=== PATIENT | female | born 1965 | race Caucasian/White ===

== ENCOUNTER 2019-05-05 22:18 | Outpatient (CLI) | payer OTHER, SELFPAY ==
[2019-05-05 22:20] VITALS: BP 109/66; PULSE 80; RESP 16; TEMP 36.8; O2SAT 98
[2019-05-05 22:26] VITALS: BMI 31.3
[2019-05-05 22:34] VITALS: RESP 16
== END 2019-05-05 22:42 | disposition home or self-care (01) ==
LOC: INF 22:21
PROVIDERS: PCP Emergency Medicine; Visit Provider Emergency Medicine
DX: N20.0 Calculus of kidney (principal)

== ENCOUNTER → 2020-02-19 20:26 | Outpatient (CLI) | payer OTHER, SELFPAY ==
[2020-02-19 21:04] LABS: Coronavirus 19 IgG Antibody Negative (Negative); Coronavirus 19 IgM Antibody Negative (Negative)
== END ==
PROVIDERS: PCP Emergency Medicine; Visit Provider Emergency Medicine
DX: Z03.818 Encounter for observation for suspected exposure to other biological agents ruled out (principal)
CPT/HCPCS: 86328

== ENCOUNTER → 2020-11-07 20:14 | Outpatient (CLI) | payer OTHER, SELFPAY ==
--- NOTE | 2020-11-07 | XR_ITS ---
PROCEDURE: XR ELBOW LT MIN 3V CLINICAL INDICATION: Pain following injury COMPARISON: No exams were available for comparison FINDINGS: There is faint calcification along the lateral epicondyle and may be due to an old ligamentous injury or ununited ossification center. The joint spaces are well-preserved. No significant degenerative/arthritic changes. No erosive changes evident. Other findings:None. IMPRESSION: No acute findings. Dictated by: Enrique Matute MD 11/08/2020 06:47 Enrique Matute MD in [facility] 11/08/2020 06:47
== END ==
PROVIDERS: PCP Emergency Medicine; Visit Provider Emergency Medicine
DX: M25.522 Pain in left elbow (principal); Y93.23 Activity, snow (alpine) (downhill) skiing, snowboarding, sledding, tobogganing and snow tubing
CPT/HCPCS: 73080

== ENCOUNTER → 2021-05-06 09:49 | Outpatient (CLI) | payer OTHER, SELFPAY | PROVIDERS: PCP Emergency Medicine; Visit Provider Emergency Medicine | DX: Z20.822 Contact with and (suspected) exposure to COVID-19 (principal) | CPT/HCPCS: U0003 ==

== ENCOUNTER → 2021-10-10 05:16 | Outpatient (CLI) | payer OTHER, SELFPAY | PROVIDERS: PCP Emergency Medicine; Visit Provider Emergency Medicine | DX: U07.1 COVID-19 (principal) | CPT/HCPCS: C9803; U0003; U0005 ==

== ENCOUNTER 2022-07-29 18:05 | Emergency (ER) | payer OTHER, SELFPAY ==
[2022-07-29 18:05] VITALS: BP 143/70; PULSE 80; RESP 18; TEMP 36.4; O2SAT 97; BMI 29.2
[2022-07-29 18:10] VITALS: BP 143/70; PULSE 85; RESP 18; O2SAT 99
[2022-07-29 18:15] VITALS: PULSE 82; O2SAT 99
--- NOTE | 2022-07-29 18:18 | PC.NURSE ---
ED MD AT BEDSIDE FOR EVALUATION
--- NOTE | 2022-07-29 18:20 | XR_ITS ---
PROCEDURE INFORMATION: Exam: XR Chest Exam date and time: 07/29/2022 6:35 PM Age: 56 years old Clinical indication: Shortness of breath; Prior surgery; Surgery date: 6+ months; Surgery type: HX triple bypass w stent placement; Patient HX: SOA since covid; Additional info: Wheezing TECHNIQUE: Imaging protocol: Radiologic exam of the chest. Views: 1 view. COMPARISON: CT ABDOMEN PELVIS WO CON 05/08/2019 8:50 PM FINDINGS: Lungs: No acute airspace consolidation. No appreciable pulmonary edema. Pleural spaces: No pleural effusion. No pneumothorax. Heart/Mediastinum: Post-operative changes of prior CABG. No cardiomegaly. Bones/joints: No evidence of acute osseous abnormality. IMPRESSION: No evidence of acute cardiopulmonary disease.
[2022-07-29 18:40] VITALS: PULSE 85
--- NOTE | 2022-07-29 18:43 | PC.NURSE ---
RESPIRATORY AT BEDSIDE
--- NOTE | 2022-07-29 20:16 | PC.NURSE ---
report given to [email or web address]
[2022-07-29 20:38] VITALS: BP 141/74; PULSE 82; RESP 18; TEMP 36.4; O2SAT 97
--- NOTE | 2022-07-29 21:43 | HMH.EDGENADL ---
Discharge Plan Disposition Patient Disposition: Home, Self-Care Condition: Good Prescriptions Prescriptions: No Action aspirin [Adult Low Dose Aspirin] 81 mg tablet,delayed release (DR/EC) 81 mg PO DAILY cholecalciferol (vitamin D3) 2,000 unit capsule 2,000 unit PO DAILY coenzyme Q10 [Co Q-10] 400 mg capsule 400 mg PO DAILY famotidine [Pepcid] 20 mg tablet 20 mg PO DAILY Qty: 90 1RF pregabalin [Lyrica] 75 mg capsule 75 mg PO BID Qty: 60 5RF metoprolol succinate 50 mg tablet extended release 24 hr See Rx Instructions .ROUTE .COMPLEX Qty: 30 8RF Dose Instruction: TAKE 1 TABLET BY MOUTH EVERY DAY Rx Instructions: TAKE 1 TABLET BY MOUTH EVERY DAY atorvastatin 40 mg tablet See Rx Instructions .ROUTE .COMPLEX Qty: 30 3RF Dose Instruction: TAKE 1 TABLET BY MOUTH EVERYDAY AT BEDTIME Rx Instructions: TAKE 1 TABLET BY MOUTH EVERYDAY AT BEDTIME lisinopril 10 mg tablet See Rx Instructions .ROUTE .COMPLEX Qty: 30 2RF Dose Instruction: TAKE 1 TABLET BY MOUTH EVERY DAY Rx Instructions: TAKE 1 TABLET BY MOUTH EVERY DAY tramadol 50 mg tablet 50 mg PO TID Qty: 90 2RF Referrals Follow up/Referrals: Stephen Cruz MD [Primary Care Provider] - See instructions Clinical Impressions Clinical Impression: COVID Instructions Patient Instructions: Coronavirus Disease 2019 Discharge ED Provider: Otto Acosta General Adult HPI General Chief complaint: Shortness of Breath/Dyspnea Stated complaint: SOA, pos Covid 07/18 Time Seen by Provider: 07/29/22 18:10 Mode of Arrival: Ambulatory Source of Information: Patient Limitations: No Limitations Description of Symptoms (Recalled from ER Triage Doc. by RN): Pt reports increased SOA that began today upon waking up today. Pt tested positive for covid on 07/18/22. Pt reports symptoms had improved and then 2 days ago began having productive cough again. Pt states no recent fevers. History of Present Illness HPI narrative: Patient is a 56-year-old female with a past medical history of hyperlipidemia, hypertension, CAD who presents with concern for worsening shortness of breath. She tested positive for COVID on 07 18. She says that her symptoms have improved but have started to get worse. No recent fevers. Denies any chest pain. She says that she feels like she is a little bit of wheezing. No nausea, no vomiting. Related Data Home Medications Medication Instructions Recorded Confirmed aspirin 81 mg tablet,delayed 81 mg PO DAILY 11/16/17 05/23/22 release (Adult Low Dose Aspirin) cholecalciferol (vitamin D3) 50 2,000 unit PO DAILY 11/16/17 05/23/22 mcg (2,000 unit) capsule coenzyme Q10 400 mg capsule (Co 400 mg PO DAILY 11/16/17 05/23/22 Q-10) Previous Rx's Medication Instructions Recorded famotidine 20 mg tablet (Pepcid) 20 mg PO DAILY #90 tabs 10/03/19 pregabalin 75 mg capsule (Lyrica) 75 mg PO BID #60 caps 11/11/21 metoprolol succinate 50 mg See Rx Instructions .Route 11/29/21 tablet,extended release 24 hr .COMPLEX #30 tabs atorvastatin 40 mg tablet See Rx Instructions .Route 04/05/22 .COMPLEX #30 tabs lisinopril 10 mg tablet See Rx Instructions .Route 06/07/22 .COMPLEX #30 tabs tramadol 50 mg tablet 50 mg PO TID #90 tabs 07/07/22 Allergies Allergy/AdvReac Type Severity Reaction Status Date / Time oxcarbazepine Allergy Mild Verified 05/23/22 08:27 [From TRILEPTAL] promethazine [PROMETHAZINE] Allergy Mild Verified 05/23/22 08:27 TEGADERM Allergy Mild Uncoded 05/23/22 08:27 [facility] Social History Smoking Status: Current every day smoker tobacco type: cigarettes packs per day: 1 alcohol intake: never substance use type: denies use current occupational status: employed Travel in the last 8 weeks: None household members: family housing: house ROS Obtained: Yes All systems revi
== END 2022-07-29 20:40 | disposition home or self-care (01) ==
PROVIDERS: Emergency Provider Student in an Organized Health Care Education/Training Program; PCP Emergency Medicine
DX: U07.1 COVID-19 (principal); Z79.82 Long term (current) use of aspirin; Z79.899 Other long term (current) drug therapy; Z88.8 Allergy status to other drugs, medicaments and biological substances; Z72.0 Tobacco use; E78.5 Hyperlipidemia, unspecified; I10 Essential (primary) hypertension; I25.10 Atherosclerotic heart disease of native coronary artery without angina pectoris
CPT/HCPCS: 71045; 94640; 96365; 96375; 99284

== ENCOUNTER 2022-08-04 20:34 | Emergency (ER) | payer OTHER, SELFPAY ==
[2022-08-04] VITALS (7 sets, daily range): BP systolic 117–154; BP diastolic 62–82; PULSE 61–73; RESP 18; TEMP 36.4; O2SAT 96–99; BMI 23.6
--- NOTE | 2022-08-04 21:11 | XR_ITS ---
PROCEDURE INFORMATION: Exam: XR Chest Exam date and time: 08/04/2022 10:01 PM Age: 56 years old Clinical indication: Shortness of breath; Prior surgery; Surgery date: 6+ months; Surgery type: Open heart; Patient HX: Recent covid SOB; Additional info: Short of air TECHNIQUE: Imaging protocol: Radiologic exam of the chest. Views: 2 views. COMPARISON: CR XR CHEST PORTABLE 07/29/2022 6:35 PM FINDINGS: Lungs: Normal pulmonary expansion. Pulmonary vasculature grossly normal. New mild left perihilar alveolar opacity, pneumonia versus atelectasis. Pleural spaces: Blunted left lateral costophrenic angle unchanged, pleural scarring versus small effusion. No pneumothorax. Heart/Mediastinum: Heart size normal. Prior median sternotomy. No tracheal/mediastinal shift. Bones/joints: No acute osseous abnormalities are identified. Moderate thoracic spondylosis. Intraperitoneal space: Right upper quadrant surgical clips suggest prior cholecystectomy. IMPRESSION: 1. New mild left perihilar airspace disease, atelectasis versus pneumonia. 2. Unchanged blunting of the left lateral costophrenic angle, small effusion versus pleural scarring.
--- NOTE | 2022-08-04 21:15 | CT_ITS ---
PROCEDURE INFORMATION: Exam: CTA Chest With Contrast Exam date and time: 08/04/2022 10:05 PM Age: 56 years old Clinical indication: Shortness of breath; Prior surgery; Surgery date: 6+ months; Surgery type: Open heart surgery; Patient HX: Recent covid SOB; Additional info: Short of air TECHNIQUE: Imaging protocol: Computed tomographic angiography of the chest with contrast. 3D rendering (Not supervised by radiologist): MIP and/or 3D reconstructed images were created by the technologist. Radiation optimization: All CT scans at this facility use at least one of these dose optimization techniques: automated exposure control; mA and/or kV adjustment per patient size (includes targeted exams where dose is matched to clinical indication); or iterative reconstruction. Contrast material: ISOVUE 370; Contrast volume: 70 ml; Contrast route: INTRAVENOUS (IV); COMPARISON: CR XR CHEST 2V 08/04/2022 10:01 PM FINDINGS: Pulmonary arteries: The pulmonary arteries enhance appropriately with no evidence of pulmonary embolism. Aorta: Mild aortic ectasia/tortuosity. No aortic aneurysm or dissection. No mediastinal hematoma. Thyroid: The visualized thyroid gland demonstrates no gross abnormality. Lungs: Mild bilateral bronchial wall thickening consistent with bronchitis or bronchial edema. No bronchiectasis. There are few short segment subsegmental bronchial occlusions in the basilar lower lobe segments bilaterally probably related to mucous plugging/secretions. No gross pulmonary infiltrates or edema pattern. Patchy atelectasis in the lingula and left lung base. 3.5 mm juxtapleural nodule in the lateral right pulmonary apex on series 5, image 21. 7 mm mixed attenuation nodule in the medial left apex on image 22. 5 mm ground-glass nodule in the posterolateral right lower lobe on image 58. Recommend CT at 3-6 months. Subsequent management based on the most suspicious nodule(s). (Ania et al., Fleischner Society, 2017). Granulomatous calcifications in the spleen without acute splenic abnormality. Pleural spaces: No pleural effusion. No pneumothorax. Heart: Heart size normal. Moderate-severe coronary artery calcification with probable prior coronary stent placements. 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 No pericardial effusion. Mediastinal space: The esophagus is largely contracted but demonstrates no gross abnormality. Lymph nodes: No supraclavicular or axillary adenopathy. No mediastinal or hilar adenopathy. Gallbladder and bile ducts: Prior cholecystectomy with no significant dilatation of the common bile duct. Bones/joints: No acute osseous abnormalities are identified. Bilateral C7 cervical ribs noted. Soft tissues: The soft tissues of the chest wall demonstrate no acute abnormality. IMPRESSION: 1. No evidence of pulmonary embolism or aortic dissection. 2. Mild bronchial wall thickening suggesting changes of bronchitis or bronchial edema. There are few short subsegmental bronchial occlusions in the lung bases likely related to mucous plugging/secretions. No gross pulmonary infiltrates. 3. There are few subsolid pulmonary nodules bilaterally, largest 7 mm in the left apex. Please see follow-up recommendations above. 4. Additional nonemergent findings detailed above.
--- NOTE | 2022-08-04 21:25 | HMH.EDSOB ---
Discharge Plan Disposition Patient Disposition: Home, Self-Care Prescriptions Prescriptions: New prednisone [prednisone] 20 mg tablet 20 mg PO BID Qty: 10 0RF levofloxacin 500 mg tablet 500 mg PO DAILY Qty: 7 0RF No Action aspirin [Adult Low Dose Aspirin] 81 mg tablet,delayed release (DR/EC) 81 mg PO DAILY cholecalciferol (vitamin D3) 2,000 unit capsule 2,000 unit PO DAILY coenzyme Q10 [Co Q-10] 400 mg capsule 400 mg PO DAILY famotidine [Pepcid] 20 mg tablet 20 mg PO DAILY Qty: 90 1RF pregabalin [Lyrica] 75 mg capsule 75 mg PO BID Qty: 60 5RF metoprolol succinate 50 mg tablet extended release 24 hr See Rx Instructions .ROUTE .COMPLEX Qty: 30 8RF Dose Instruction: TAKE 1 TABLET BY MOUTH EVERY DAY Rx Instructions: TAKE 1 TABLET BY MOUTH EVERY DAY lisinopril 10 mg tablet See Rx Instructions .ROUTE .COMPLEX Qty: 30 2RF Dose Instruction: TAKE 1 TABLET BY MOUTH EVERY DAY Rx Instructions: TAKE 1 TABLET BY MOUTH EVERY DAY tramadol 50 mg tablet 50 mg PO TID Qty: 90 2RF atorvastatin 40 mg tablet See Rx Instructions .ROUTE .COMPLEX Qty: 30 3RF Dose Instruction: TAKE 1 TABLET BY MOUTH EVERYDAY AT BEDTIME Rx Instructions: TAKE 1 TABLET BY MOUTH EVERYDAY AT BEDTIME Referrals Follow up/Referrals: Stephen Cruz MD [Primary Care Provider] - See instructions Clinical Impressions Clinical Impression: Acute exacerbation of chronic obstructive airways disease Instructions Patient Instructions: DI for Chronic Obstructive Pulmonary Disease Discharge ED Provider: Stephen Cruz Resp/SOB HPI General Chief Complaint: Shortness of Breath/Dyspnea Stated Complaint: SOA Time Seen by Provider: 08/04/22 21:25 Mode of Arrival: Ambulatory Source of Information: Patient, Spouse and Medical Record Limitations: No Limitations Description of Symptoms (Recalled from ER Triage Doc. by RN): pt states that she has had shortness of air since sunday. the pt reports she has had chest pressure since 2pm today pt is coming off her second round of covid and has been unable to over come the short of air. the pt states her cough has gotten better History of Present Illness progressive sob with prod cough over the last few days - was seen in the ed -more sob with ambulation - hx of cad and covid-19 and tob use Complaint: shortness of breath and cough Onset (ago): day(s) Context: recent illness Severity: moderate Consistency/Duration: constant Exacerbating factors: exertion and coughing Known history of: COPD Associated symptoms: denies other symptoms Related Data Home oxygen amount: none Home Medications Medication Instructions Recorded Confirmed aspirin 81 mg tablet,delayed 81 mg PO DAILY 11/16/17 05/23/22 release (Adult Low Dose Aspirin) cholecalciferol (vitamin D3) 50 2,000 unit PO DAILY 11/16/17 05/23/22 mcg (2,000 unit) capsule coenzyme Q10 400 mg capsule (Co 400 mg PO DAILY 11/16/17 05/23/22 Q-10) Previous Rx's Medication Instructions Recorded famotidine 20 mg tablet (Pepcid) 20 mg PO DAILY #90 tabs 10/03/19 pregabalin 75 mg capsule (Lyrica) 75 mg PO BID #60 caps 11/11/21 metoprolol succinate 50 mg See Rx Instructions .Route 11/29/21 tablet,extended release 24 hr .COMPLEX #30 tabs lisinopril 10 mg tablet See Rx Instructions .Route 06/07/22 .COMPLEX #30 tabs tramadol 50 mg tablet 50 mg PO TID #90 tabs 07/07/22 atorvastatin 40 mg tablet See Rx Instructions .Route 08/03/22 .COMPLEX #30 tabs levofloxacin 500 mg tablet 500 mg PO DAILY #7 tabs 08/05/22 prednisone 20 mg tablet 20 mg PO BID #10 tabs 08/05/22 Allergies Allergy/AdvReac Type Severity Reaction Status Date / Time oxcarbazepine Allergy Mild Verified 05/23/22 08:27 [From TRILEPTAL] promethazine [PROMETHAZINE] Allergy Mild Verified 05/23/22 08:27 TEGADERM Allergy Mild Uncoded 05/23/22 08:27 [facility] PFS Social History (Reviewed 05/23/22
[2022-08-04 21:26] LABS: Basophils # 0.2 K/mm3 (0-0.2); Basophils % 1.1 % (0.1-2.0); Eosinophils # 0.7 K/mm3 (0.0-0.4); Hematocrit 43.9 % (37.0-47.0); Hemoglobin 14.6 g/dL (12.2-16.2); Lymphocytes # 5.9 K/mm3 (0.7-4.5); Lymphocytes % 36.7 % (10-50); Mean Corpuscular HGB Conc 33.2 g/dL (31.8-35.4); Mean Corpuscular Hemoglobin 28.8 pg (27.0-31.2); Mean Corpuscular Volume 86.9 fl (81-99); Mean Platelet Volume 8.7 fl (7.4-10.4); Monocytes # 0.7 K/mm3 (0.1-1.0); Monocytes % 4.5 % (1.7-9.3); Neutrophils # 8.6 K/mm3 (1.8-7.8); Neutrophils % 53.7 % (37.0-80.0); Platelet Count 420 K/mm3 (142-424); Red Blood Count 5.05 M/mm3 (4.20-5.40); Red Cell Distribution Width 13.2 % (11.5-17.5); White Blood Count 16.1 K/mm3 (4.8-10.8)
[2022-08-04 21:27] LABS: Chloride 99 mmol/L (98-107)
[2022-08-04 21:28] LABS: Sodium 143 mmol/L (136-145)
[2022-08-04 21:29] LABS: MANUAL DIFFERENTIAL MANUAL DIFFERENTIAL (MANUAL DIFF)
[2022-08-04 21:30] LABS: Alanine Aminotransferase 24 U/L (12-78); Aspartate Amino Transferase 23 U/L (14-36); Blood Urea Nitrogen 6 mg/dl (7-17); Creatinine Clearance Estimated 97 mL/min (50-200); Estimated Glomerular Filt Rate 86 ml/min (>60); GFR (African American) 104 ML/MIN (>60)
[2022-08-04 21:31] LABS: Albumin Level 3.9 g/dl (3.5-5.0); Albumin/Globulin Ratio 1.1 (1.1-1.8); Alkaline Phosphatase 144 U/L (38-126); Anion Gap 11.8 mEq/L (5-15); Bilirubin,Total 0.2 mg/dl (0.2-1.3); Calcium 9.4 mg/dl (8.4-10.2); Carbon Dioxide 35 mmol/L (22.0-30.0); Globulin 3.4 g/dL (1.3-3.2); Glucose 123 mg/dl (74-100); Total Protein,Serum 7.3 g/dl (6.3-8.2)
[2022-08-04 21:50] LABS: Troponin I < 0.01 ng/ml (0.00-0.034)
[2022-08-04 21:51] LABS: Potassium 2.8 mmoL/L (3.5-5.1)
--- NOTE | 2022-08-04 21:52 | PC.NURSE ---
notified lina of critical potassium 2.8
[2022-08-04 22:16] LABS: Eosinophils % 2 % (0-3); Lymphocytes % 30 % (10-50); Neutrophils % 66 % (42-76); Platelet Estimate Normal; RBC Morphology Normal; Total Cells Counted 100
[2022-08-04 23:22] LABS: NT Pro Brain Natriuretic Pep. 242 pg/mL (0-125)
[2022-08-05] VITALS: BP 134/78; PULSE 70; O2SAT 98
[2022-08-05 00:30] VITALS: BP 122/65; PULSE 77; O2SAT 99
[2022-08-05 00:46] LABS: Troponin I < 0.01 ng/ml (0.00-0.034)
[2022-08-05 00:53] VITALS: BP 122/78; PULSE 77; RESP 18; TEMP 36.4; O2SAT 98
== END 2022-08-05 00:55 | disposition home or self-care (01) ==
PROVIDERS: Emergency Provider Emergency Medicine; PCP Emergency Medicine
DX: J44.1 Chronic obstructive pulmonary disease with (acute) exacerbation (principal); Z86.16 Personal history of COVID-19; Z72.0 Tobacco use; Z88.8 Allergy status to other drugs, medicaments and biological substances; I10 Essential (primary) hypertension; I25.10 Atherosclerotic heart disease of native coronary artery without angina pectoris; E78.5 Hyperlipidemia, unspecified
CPT/HCPCS: 71046; 71275; 80053; 83880; 84484; 85007; 85025; 94640; 96365; 96367; 96375; 99285; J0696; Q9967

== ENCOUNTER → 2022-10-07 19:41 | Outpatient (CLI) | payer OTHER, SELFPAY ==
--- NOTE | 2022-10-07 | XR_ITS ---
PROCEDURE INFORMATION: Exam: XR Right Finger(s) Exam date and time: 10/07/2022 7:49 PM Age: 56 years old Clinical indication: Pain; Finger(s); Right; Additional info: Finger pain right 3rd digit TECHNIQUE: Imaging protocol: Radiologic exam of the Right fingers. Views: Minimum 2 views. COMPARISON: No relevant prior studies available. FINDINGS: Bones/joints: No acute fracture or dislocation. There are no lytic skeletal lesions seen. No significant arthritic deformities. Soft tissues: Soft tissue swelling.No radiopaque foreign bodies. No pathologic soft tissue calcification. IMPRESSION: 1. Soft tissue swelling. 2. No acute bony injury.
== END ==
PROVIDERS: PCP Emergency Medicine; Visit Provider Emergency Medicine
DX: M79.644 Pain in right finger(s) (principal)
CPT/HCPCS: 73140

== ENCOUNTER 2023-02-23 06:50 | Day surgery (SDC) | payer OTHER, SELFPAY ==
[2023-02-23] VITALS (14 sets, daily range): BP systolic 86–119; BP diastolic 49–65; PULSE 54–60; RESP 14–18; TEMP 36.9; O2SAT 95–99; BMI 29.6
--- NOTE | 2023-02-23 07:08 | IR_ITS ---
APPROVED REPORT Patient Location: Outpatient PROCEDURES Left heart catheterization Left ventriculogram Selective coronary angiogram Selective engagement of left internal mammary artery to the LAD Selective engage in the saphenous vein graft to the right coronary Selective engagement saphenous vein graft to circumflex artery INDICATION Coronary artery disease, Accelerated angina pectoris, History of coronary bypass surgery Informed consent was obtained prior to the procedure. COMPLICATIONS None Estimated Blood Loss: Less than 10 mls TECHNIQUE One percent lidocaine used to anesthetize the right groin. The right femoral artery was accessed via the Seldinger technique and a 5 Spanish sheath was placed in the right femoral artery. A JL 4, JR4 catheter were used to perform left heart catheterization, left ventriculogram selective coronary angiography as well as selective engagement of the 2 vein grafts and the left internal mammary artery. At the end of the procedure the patient was transferred to the postop holding area in stable condition for sheath removal. ANGIOGRAPHIC RESULTS The left main artery Normal The left anterior descending artery Has stents in the ostial proximal segment which are widely patent free of in-stent restenosis. After a large septal furnace builder the LAD becomes occluded. It does give rise to a small to medium sized diagonal artery which has a proximal concentric 80 to 90% stenosis The circumflex artery Nondominant proximally occluded The right coronary artery Is a dominant vessel and has stents in the proximal mid and distal segment which are widely patent free of in-stent restenosis with excellent proximal distal transitioning. Distally there is a concentric 50 to 60% stenosis at a 2 mm segment in the posterior descending artery The RAMOS ventriculogram reveals Normal 60% The left ventricular end-diastolic pressure 10 mmHg MARCIAL to LAD patent Saphenous to circumflex artery ostially occluded Saphenous to right coronary ostially occluded IMPRESSION Coronary disease as described above Normal ejection fraction Normal left ventricular end-diastolic pressure Patient's angina stems from ongoing tobacco usage with microvascular spasm PLAN 1. Avoidance of tobacco products 2. Maximize antianginal medications 3. Add indoor 30 mg a day and Ranexa if blood pressure will allow 4. LDL less than 55 to be achieved with high intensity statin Electronically signed by : Stephane Venegas MD 02/23/2023 13:24:07
[2023-02-23 08:26] LABS: Basophils # 0.1 K/mm3 (0-0.2); Basophils % 0.5 % (0.1-2.0); Eosinophils # 0.6 K/mm3 (0.0-0.4); Eosinophils % 3.5 % (0.1-12.0); Hematocrit 44.5 % (37.0-47.0); Hemoglobin 14.4 g/dL (12.2-16.2); Lymphocytes # 3.8 K/mm3 (0.7-4.5); Lymphocytes % 24.1 % (10-50); Mean Corpuscular HGB Conc 32.3 g/dL (31.8-35.4); Mean Corpuscular Hemoglobin 28.5 pg (27.0-31.2); Mean Corpuscular Volume 88.2 fl (81-99); Mean Platelet Volume 8.9 fl (7.4-10.4); Monocytes # 0.8 K/mm3 (0.1-1.0); Neutrophils # 10.4 K/mm3 (1.8-7.8); Neutrophils % 66.9 % (37.0-80.0); Platelet Count 276 K/mm3 (142-424); Red Blood Count 5.05 M/mm3 (4.20-5.40); Red Cell Distribution Width 13.3 % (11.5-17.5); White Blood Count 15.6 K/mm3 (4.8-10.8)
[2023-02-23 08:29] LABS: Chloride 103 mmol/L (98-107); MANUAL DIFFERENTIAL MANUAL DIFFERENTIAL (MANUAL DIFF); Potassium 4.3 mmoL/L (3.5-5.1); Sodium 139 mmol/L (136-145)
[2023-02-23 08:32] LABS: Anion Gap 14.3 mEq/L (5-15); Blood Urea Nitrogen 8 mg/dl (7-17); Calcium 8.8 mg/dl (8.4-10.2); Carbon Dioxide 26 mmol/L (22.0-30.0); Creatinine Clearance Estimated 97 mL/min (50-200); Estimated Glomerular Filt Rate 86 ml/min (>60); GFR (African American) 104 ML/MIN (>60); Glucose 126 mg/dl (74-100)
[2023-02-23 08:46] LABS: Lymphocytes % 39 % (10-50); Monocytes % 4 % (2-9); Neutrophils % 57 % (42-76); Platelet Estimate Normal; RBC Morphology Normal; Total Cells Counted 100
== END 2023-02-23 13:34 | disposition home or self-care (01) ==
PROVIDERS: PCP Emergency Medicine; Visit Provider Internal Medicine
DX: I25.118 Atherosclerotic heart disease of native coronary artery with other forms of angina pectoris (principal); Z95.1 Presence of aortocoronary bypass graft; F17.210 Nicotine dependence, cigarettes, uncomplicated; Z79.899 Other long term (current) drug therapy; Z95.5 Presence of coronary angioplasty implant and graft; I10 Essential (primary) hypertension; E78.5 Hyperlipidemia, unspecified; I25.82 Chronic total occlusion of coronary artery
CPT/HCPCS: 80048; 85007; 85025; 93306; 93459; 99152; C1725; C1769; C1894; J1644; Q9967

== ENCOUNTER → 2023-04-14 01:49 | Outpatient (CLI) | payer OTHER, SELFPAY ==
--- NOTE | 2023-04-14 01:58 | CT_ITS ---
PROCEDURE INFORMATION: Exam: CT Chest Without Contrast; Diagnostic Exam date and time: 04/14/2023 2:04 AM Age: 57 years old Clinical indication: Abnormal findings; Abnormal radiologic exam of lung or chest; Additional info: Abnormal CT f/u TECHNIQUE: Imaging protocol: Diagnostic computed tomography of the chest without contrast. Radiation optimization: All CT scans at this facility use at least one of these dose optimization techniques: automated exposure control; mA and/or kV adjustment per patient size (includes targeted exams where dose is matched to clinical indication); or iterative reconstruction. REPORTING DATA: Count of CT and Cardiac NM exams in prior 12 months: This patient has received [address] and 0 known cardiac nuclear medicine studies in the 12 months prior to the current study. COMPARISON: CT ANGIO CHEST PE PROTOCOL 08/04/2022 10:05 PM FINDINGS: Lungs: Small left apical bleb. Parenchymal scarring of the anterior left upper lobe, lingula and basal left lower lobe. No consolidation. Mild bronchial thickening. Pleural spaces: Chronic mild left pleural thickening. No pleural effusion or pneumothorax. Heart: Mild left atrial enlargement. Postsurgical changes of the intra-atrial septum. Subendocardial fatty metaplasia in the anterior wall of the left ventricle and at the LV apex compatible with LAD territory myocardial infarction. Coronary arteries: Multiple coronary stents in place. Status post CABG. Lymph nodes: Unremarkable. No enlarged lymph nodes. Vasculature: Mild atherosclerotic calcifications of the thoracic aorta and vessels. Gallbladder and bile ducts: Status post cholecystectomy. Spleen: Calcified granulomas in the spleen. Bones/joints: Intact sternotomy. Soft tissues: Unremarkable. IMPRESSION: 1. No acute findings in the chest. 2. Resolution of prior subsolid pulmonary nodules compatible with infectious/inflammatory etiology. 3. Ancillary findings as above.
== END ==
PROVIDERS: PCP Emergency Medicine; Visit Provider Emergency Medicine
DX: R91.1 Solitary pulmonary nodule (principal); R93.89 Abnormal findings on diagnostic imaging of other specified body structures
CPT/HCPCS: 71250

== ENCOUNTER 2023-11-21 07:53 | Outpatient (RCR) | payer OTHER, SELFPAY ==
--- NOTE | 2023-11-21 09:06 | HMH.PTOPEV ---
PT Outpatient Evaluation Rehab PT Outpatient Evaluation Start: 11/21/23 08:42 Freq: Status: Active Protocol: Document 11/21/23 08:42 NENA (Rec: 11/21/23 09:06 NENA [id number]) E-signed By Otto Peres, PT Outpatient Therapy Subjective History Subjective History Pt reports h/o chronic neck pain since mowing season last year, reports mostly intermittent s/s but have progressed in the last couple months w/increased frequency. Pt reports right > left sided neck (UT mm) and intermittent LUE radicular s/s 'which may be from the way I sleep.' New diagnosis of cancer in past 12 No months? Chief Complaint Pain,Stiff,Paresthesia Symptom Type Ache,Sharp,Dull,Numbness, Tingling Symptoms Relieved By Rest/Positioning,OTC Meds, Prescription Meds Symptoms Aggravated By Physical Activity,Lifting Prior Functional Limitations Reaching,Lifting,Housework, Desk Work/Reading Current Functional Limitations Reaching,Lifting,Housework, Desk Work/Reading Symptom Description Constant but Variable Level of pain today (0-10) 4 Pain scale - at its best (0-10) 3 Pain scale - at its worst (0-10) 8 Cervical Eval Palpation Cervical Muscles R Cervical Paraspinal,R CT Junction,L CT Junction,R Upper Trapezius,R Thoracic Paraspinals Cervical/Thoracic Palpation Findings Tenderness,Trigger Point Posture Head/C-Spine Posture Sitting Position Flexed Head/C-Spine Posture Standing Position Flexed Flexibility Deficits Upper Trapezius Muscle Length (L) Mild Tightness,(R) Moderate Tightness Levaetor Scapulae Muscle Length (L) Mild Tightness,(R) Moderate Tightness Scalene Group Muscle Length (R) Moderate Tightness,(L) Moderate Tightness Passive Joint Mobility Cervical PIVM Dec: R OA L OA R AA L AA R C2/3 L C2/3 R C3/4 L C3/4 R C4/5 L C4/5 R C5/6 L C5/6 R C6/7 L C6/7 R C7/T1 L C7/T1 AROM Cervical Spine Extension Active Range of 0-20 Motion (degrees) Cervical Spine Flexion Active Range of 0-40 Motion (degrees) Cervical Spine Right Lateral Flexion 0-15 Active Range of Motion (degrees) Cervical Spine Left Lateral Flexion 0-25 Active Range of Motion (degrees) Cervical Spine Right Rotation Active 0-55 Range of Motion (degrees) Cervical Spine Left Rotation Active 0-55 Range of Motion (degrees) MMT Right Deltoid (C5) 4 Good Biceps Brachii Strength Grade 4 Good Wrist Extension Strength Grade 4 Good Triceps Brachii Strength Grade 4 Good Wrist Flexion Strength Grade 4 Good Extensor Pollicis Longus Strength Grade 4 Good Finger Abduction Strength Grade 4 Good Left Deltoid (C5) 4- Good- Biceps Brachii Strength Grade 4 Good Wrist Extension Strength Grade 4 Good Triceps Brachii Strength Grade 4 Good Wrist Flexion Strength Grade 4 Good Extensor Pollicis Longus Strength Grade 4 Good Finger Abduction Strength Grade 4 Good Special Test C-Spine Foraminal Compression (Spurling) Negative Left,Negative Right Test C-Spine Foraminal Distraction Test Negative Neck Disability Index Neck Disability Index Section 1: Pain Intensity The pain is very mild at moment Section 2: Personal Care (washing, I can look after myself dressing, etc.) normally but it causes extra pain Section 3: Lifting I can lift heavy weights but it gives extra pain Section 4: Reading I can read as much as I want with moderate pain in my neck Section 5: Headaches I have moderate headaches, which come frequently Section 6: Concentration I can concentrate fully when I want to with no difficulty Section 7: Work I can only do my usual work, but no more Section 8: Driving I can drive my car without any neck pain Section 9: Sleeping My sleep is slightly disturbed (less than 1 hr sleepless) Section 10: Recreation I am able to engage in all my recreation activities with some pain in NDI Score 11 Outpatient Therapy Assessment Impairments Problems/Impairmments Palpation Tenderness,Impaired Range of Motion,Impaired Strength,Impaired Lifting, Impaired Household Care, Impaired Desk/Computer Activities,Subjective C/O Pain ,Impaired Self Care/Self Management Prognosis Rehab Potential Good Clinical Impression Consistent with Diagnosis Yes Short Term Goals Number of Weeks 4 Decreased Palpation Tenderness Yes: 1-2/4 cervical and thoracic mm Increase Range of Motion Yes: 75% of WFL CROM Increase Strength Yes: 4/5 B/L UE'S Improve Ability For Household Care Yes: 30MIN Improve Tolerance to Desk/Computer Yes: 30MIN Activities Decrease Subjective C/O Pain Yes: 12/25 W/ABOVE ACTIVITIES Patient to be Ind w/ HEP Yes Tunnel Form Placing Supervisor Goals Number of Weeks 6-8 Decreased Palpation Tenderness Yes: 0-1/4 CERVICAL AND THORACIC MM Increase Range of Motion Yes: WFL CROM Increase Strength Yes: WFL B/L UE'S Increase Ability to Drive/Ride in Car Yes: 60MIN Restore Ability to Lift Objects to Waist Yes: 20# Level Improve Ability For Household Care Yes: 60MIN Improve Tolerance to Desk/Computer Yes: 60MIN Activities Improve Neck Disability Index Score Yes: 6-8 Decrease Subjective C/O Pain Yes: 0-2/10 W/ABOVE ACTIVITIES Patient to be Ind w/ Advanced HEP Yes Outpatient Therapy Plan of Care Treatment Plan May Include Therapeutic Exercise Including Home Yes Exercise Program Manual Therapy Techniques Yes Neuromuscular Re-education Yes Therapeutic Activities to Return to Yes Previous Functional/Work Level ADL/Self Care Education Yes Mechanical Traction Yes Dry Needling Yes Thermal Modalities Yes Electrical Stimulation Yes Ultrasound/Phonophoresis Yes Iontophoresis Yes Eval/Re-Eval Yes Frequency Times per week 2-3 Duration Number of Weeks 6-8 Addendums This patient is a candidate for social No or vocational rehab? Patient/Guardian verbally acknowledges Yes understanding of treatment program and consents to further treatment? Patient/Guardian verbally acknowledges Yes understanding of diagnosis, prognosis and goals for treatment? Eval Complexity PT Charges 56780 - Low Complexity Shoulder/Elbow Eval Shoulder Objective Measurements Elbow Objective Measurements PHYSICIAN CERTIFICATION: I certify the specified therapy services for Liseth Romano are required, authorized, and reviewed every 30 days.
== END 2023-11-21 09:10 | disposition home or self-care (01) ==
LOC: PT 07:53
PROVIDERS: Visit Provider Nurse Practitioner Family
DX: M54.12 Radiculopathy, cervical region (principal)
CPT/HCPCS: 97010; 97014; 97035; 97163; G0283

== ENCOUNTER 2023-12-03 14:11 | Outpatient (CLI) | payer OTHER, SELFPAY ==
--- NOTE | 2023-12-03 14:12 | MR_ITS ---
FINAL REPORT CLINICAL HISTORY: C-Spine pain Neck pain SINCE JANUARY 2023 Pain with Push/Pull FINDINGS: Multiplanar MR imaging of the cervical spine was performed without contrast. On the sagittal T2-weighted images, disc degeneration is seen at multiple levels. There is no evidence of fracture. The vertebral alignment is normal. The cervical spinal cord has an unremarkable appearance without evidence of mass, edema or syrinx. The cervicomedullary junction is normal. C2-3: There is no significant canal stenosis or neural foraminal narrowing. C3-4: An annular bulge is present. There are uncovertebral osteophytes. There is a small central disc protrusion. There is mild right neuroforaminal narrowing. C4-5: An annular bulge is present. There are uncovertebral osteophytes. There is a small central disc protrusion. There is no significant central canal stenosis or neuroforaminal narrowing. C5-6: An annular bulge is present. There are uncovertebral osteophytes. There is a small central disc protrusion. There is no significant central canal stenosis or neuroforaminal narrowing. C6-7: An annular bulge is present. There are small uncovertebral osteophytes. There is no significant central canal stenosis or neuroforaminal narrowing. C7-T1: There is no significant canal stenosis or neural foraminal narrowing. IMPRESSION: Multilevel degenerative disc disease with small central disc protrusions at C3-4, C4-5, and C5-6. Reviewed, Interpreted and Dictated by Gabriel Cuello III, MD Transcribed by Roro Simpson Authenticated and . [facility] [place]
== END 2023-12-03 23:59 ==
LOC: RAD 14:12
PROVIDERS: PCP Nurse Practitioner Family; Visit Provider Nurse Practitioner Family
DX: M54.12 Radiculopathy, cervical region (principal)
CPT/HCPCS: 72141; 76376

== ENCOUNTER 2024-01-02 15:20 | Outpatient (CLI) | payer OTHER, SELFPAY ==
[2024-01-02 18:27] LABS: Basophils # 0.1 K/mm3 (0-0.2); Basophils % 0.8 % (0.1-2.0); Eosinophils # 0.5 K/mm3 (0.0-0.4); Eosinophils % 4.3 % (0.1-12.0); Hematocrit 43.4 % (37.0-47.0); Hemoglobin 14.1 g/dL (12.2-16.2); Lymphocytes # 3.6 K/mm3 (0.7-4.5); Lymphocytes % 28.6 % (10-50); Mean Corpuscular HGB Conc 32.4 g/dL (31.8-35.4); Mean Corpuscular Hemoglobin 30.3 pg (27.0-31.2); Mean Corpuscular Volume 93.3 fl (81-99); Mean Platelet Volume 10.6 fl (7.4-10.4); Monocytes # 0.8 K/mm3 (0.1-1.0); Neutrophils # 7.5 K/mm3 (1.8-7.8); Neutrophils % 60.3 % (37.0-80.0); Platelet Count 315 K/mm3 (142-424); Red Blood Count 4.65 M/mm3 (4.20-5.40); Red Cell Distribution Width 13.8 % (11.5-17.5); White Blood Count 12.4 K/mm3 (4.8-10.8)
[2024-01-02 18:28] LABS: Alanine Aminotransferase 21 U/L (12-78); Albumin Level 3.7 g/dl (3.5-5.0); Albumin/Globulin Ratio 1.5 (1.1-1.8); Alkaline Phosphatase 112 U/L (38-126); Anion Gap 10.5 mEq/L (5-15); Aspartate Amino Transferase 22 U/L (14-36); Bilirubin,Total 0.4 mg/dl (0.2-1.3); Blood Urea Nitrogen 9 mg/dl (7-17); Calcium 8.9 mg/dl (8.4-10.2); Carbon Dioxide 30 mmol/L (22.0-30.0); Chloride 106 mmol/L (98-107); Chol/HDL Ratio 5.6 (1-3.5); Cholesterol 162 mg/dl (140-200); Estimated Glomerular Filt Rate 85 ml/min (>60); GFR (African American) 103 ML/MIN (>60); Globulin 2.5 g/dL (1.3-3.2); Glucose 124 mg/dl (74-100); HDL Cholesterol 29 mg/dl (40-60); Potassium 3.5 mmoL/L (3.5-5.1); Sodium 143 mmol/L (136-145); Total Protein,Serum 6.2 g/dl (6.3-8.2); Triglycerides 130 mg/dl (30-150); VLDL Cholesterol 26 mg/dL (0-40)
[2024-01-02 18:38] LABS: Direct LDL Cholesterol 93.93 mg/dL (100-129)
[2024-01-02 18:43] LABS: Hemoglobin A1C 6.4 % (4.0-6.0)
[2024-01-02 18:44] LABS: 25-OH Vitamin D, Total 21.3 ng/mL (30-100)
== END 2024-01-02 23:59 | disposition home or self-care (01) ==
LOC: LAB.DROPOF 01-03 15:20
PROVIDERS: PCP Nurse Practitioner Family; Visit Provider Nurse Practitioner Family
DX: E78.5 Hyperlipidemia, unspecified (principal); E55.9 Vitamin D deficiency, unspecified; Z68.30 Body mass index [BMI] 30.0-30.9, adult
CPT/HCPCS: 80053; 80061; 82306; 83036; 84443; 85025

== ENCOUNTER 2024-08-26 09:19 | Outpatient (CLI) | payer OTHER, SELFPAY ==
[2024-08-26 20:37] LABS: HIV (1&2) Antibody Rapid NONREACTIVE (NONREACTIVE)
[2024-08-26 21:18] LABS: Vitamin B12 379 pg/mL (239-931)
[2024-08-26 21:38] LABS: Iron 97 ug/dL (37-170); Total Iron Binding Capacity 353 ug/dL (265-497)
[2024-08-28 08:17] LABS: HCV Ab Non Reactive (Non Reactive)
== END 2024-08-26 23:59 | disposition home or self-care (01) ==
LOC: LAB.DROPOF 08-27 10:08
PROVIDERS: PCP Nurse Practitioner Family; Visit Provider Nurse Practitioner Family
DX: Z11.59 Encounter for screening for other viral diseases (principal); I10 Essential (primary) hypertension; Z72.0 Tobacco use
CPT/HCPCS: 82607; 82746; 83540; 83550; 86803; 87389

== ENCOUNTER 2025-03-17 10:53 | Outpatient (CLI) | payer OTHER, SELFPAY ==
[2025-03-17 18:28] LABS: Hematocrit 45.9 % (37.0-47.0); Hemoglobin 14.6 g/dL (12.2-16.2); Immature Granulocytes % 0.2 %; Mean Corpuscular HGB Conc 31.8 g/dL (31.8-35.4); Mean Corpuscular Hemoglobin 28.5 pg (27.0-31.2); Mean Corpuscular Volume 89.6 fl (81-99); Nucleated Red Blood Cells % 0 %; Platelet Count 292 K/mm3 (142-424); Red Blood Count 5.12 M/mm3 (4.20-5.40); Red Cell Distribution Width-SD 43.6 fL; White Blood Count 13.2 K/mm3 (4.8-10.8)
[2025-03-17 19:06] LABS: Alanine Aminotransferase 23 U/L (12-78); Albumin Level 4.4 g/dl (3.5-5.0); Albumin/Globulin Ratio 1.5 (1.1-1.8); Alkaline Phosphatase 110 U/L (38-126); Anion Gap 14.7 mEq/L (5-15); Aspartate Amino Transferase 24 U/L (14-36); Bilirubin,Total 0.5 mg/dl (0.2-1.3); Blood Urea Nitrogen 7 mg/dl (7-17); Calcium 8.9 mg/dl (8.4-10.2); Carbon Dioxide 28 mmol/L (22.0-30.0); Chloride 100 mmol/L (98-107); Cholesterol 255 mg/dl (140-200); Creatinine,Serum 0.70 mg/dl (0.52-1.04); Estimated Glomerular Filt Rate 85 ml/min (>60); GFR (African American) 103 ML/MIN (>60); Globulin 3.0 g/dL (1.3-3.2); Glucose 96 mg/dl (74-100); HDL Cholesterol 33 mg/dl (40-60); Potassium 4.7 mmoL/L (3.5-5.1); Sodium 138 mmol/L (136-145); Total Protein,Serum 7.4 g/dl (6.3-8.2); Triglycerides 187 mg/dl (30-150)
[2025-03-17 19:16] LABS: Free T4 (Free Thyroxine) 1.31 ng/dl (0.78-2.19)
[2025-03-17 19:18] LABS: 25-OH Vitamin D, Total 29.2 ng/mL (30-100)
[2025-03-17 19:33] LABS: Thyroid Stimulating Hormone 1.89 uIU/mL (0.465-4.68)
[2025-03-17 19:49] LABS: Hemoglobin A1C 7.5 % (4.0-6.0)
--- OUTSIDE RECORDS SUMMARY | 2025-03-19 11:05 | XMS_ITS | Clinical Summary ---
Author Organization [facility] Address [address] [place] [address] Care Team Providers Care Pool Table Operator Name Role Phone Stephen Cruz MD Primary Care Provider [phone] Allergies Active Allergy Reactions Criticality Noted Date Comments Oxcarbazepine Itching,Rash,Unknown - Patient states they do not know rxn details Medium 12/30/2015 Promethazine Other - please docum ent in the comment field,Unknown - Patient states they do not know rxn details Low 12/30/2015 muscle contractions Medications metoprolol succinate XL (Toprol-XL) 50 MG 24 hr tablet 10/28/2022 Act dari lisinopril 10 MG tablet 10/28/2022 Active Aspirin Buf,CaCarb-MgCar b-MgO, 81 MG tablet 01/25/2016 Active traMADol (Ultram) 50 MG tablet Take 50 mg by mouth 3 (three) times a day. 10/03/2022 Active atorvastatin (Lipitor) 40 MG tablet 10/28/2022 Active co-enzyme Q-10 30 MG capsule Take 30 mg by mouth 1 (one) time each day. Active Active Problems Problem Noted Date Diagnosed Date Mallet finger, right 11/01/2022 Social History Tobacco Use Types Packs/Day Years Used Date Smoking Tobacco: Every Day Cigarettes Smokeless Tobacco: Never Tobacco Cessation:Ready to Q uit: Not Asked; Counseling Given: Not Answered PHQ-2 Answer Date Recorded Patient Health Questionnaire-2 Score 0 11/01/2022 PHQ-2A Answer Date Recorded Patient Health Questionnaire-2 Score 0 11/01/2022 Comments Unknown Sex and Gender Information Value Date Recorded Sex Assigned at Not on file Legal Sex Female 7:50 PM EDT Gender Identity Not on file Sexual Orientation Not on file Last Filed Vital Signs Vital Sign Reading Time Taken Comments Blood Pressure 166/72 02/23/2023 7:59 AM EDT Pulse 55 02/23/2023 7:59 AM EDT Temperature - - Respiratory Rate - - Oxygen Saturation 96% 11/01/2022 7:56 AM EST Inhaled Oxygen Concentration - - Weight 71.2 kg (157 lb) 02/23/2023 7:59 AM EDT Height 154.9 cm (5' 1 ) 02/23/2023 7:59 AM EDT Body Mass Index 29.66 02/23/2023 7:59 AM EDT Plan of Treatment Health Maintenance Due Date Last Done Comments [facility]-HIV Screening 1965 [facility]-Hepatitis C Screening 1963 [facility]-Infant/Child/Adol SDOH Screenings 1963 [facility]- SDOH Screenings 12/23/1981 [facility]-Adult SDOH Screenings 12/23/1981 [facility]-DTaP,Tdap,and Td Vaccine s (1 - Tdap) 12/23/1982 CT Colonography 12/23/2008 Colonoscopy 12/23/2008 FIT-DNA 12/23/2008 FIT 12/23/2008 FOBT 12/23/2008 Sigmoidoscopy 12/23/2008 [facility]-Colorectal Cancer Screening 12/23/2008 [facility]-Breast Cancer Screening 12/23/2013 [facility]-Pneumococcal Vaccine: 50 + Years (1 of 1 - PCV) 12/23/2013 [facility]-Zoster Vaccines (1 of 2) 12/23/2013 [facility]-Depression Screening 11/01/2023 11/01/2022 [id number] Vaccine ( season) 2024 07/21/2021, 10/11/2020, 09/13/2020 [facility]-Influenza Vaccine (Seaso n Ended) 2025 [facility]-RSV Vaccine: 60+ Years o r (1 - 1-dose 75+ series) 12/23/2038 [facility]-Obesity Intervention Completed 11/01/2022 HPV Vaccines Aged Out No longer eligi ble based on patient's age to complete this topic [facility]-HIB Vaccines Aged Out No longer e ligible based on patient's age to complete this topic [facility]-Hepatitis A Vaccines Aged Out No longer eligible based on patient's age to complete this topic [facility]-IPV Vaccines Aged Out No longer e ligible based on patient's age to complete this topic [facility]-Rotavirus Vaccines Aged Out No lo nger eligible based on patient's age to complete this topic Insurance Care Teams Pool Table Operator Relationship Specialty Start Date End Date Stephen Cruz MD [address] [place] [address] PCP - General 11/01/22
== END 2025-03-17 23:59 | disposition home or self-care (01) ==
LOC: LAB.DROPOF 03-19 10:54
PROVIDERS: PCP Nurse Practitioner Family; Visit Provider Nurse Practitioner Family
DX: E78.5 Hyperlipidemia, unspecified (principal); I10 Essential (primary) hypertension; E66.811 Obesity, class 1; E55.9 Vitamin D deficiency, unspecified; R42 Dizziness and giddiness
CPT/HCPCS: 80053; 80061; 82306; 83036; 84439; 84443; 85025

== ENCOUNTER 2025-04-13 08:00 | Outpatient (RCR) | payer OTHER, SELFPAY | END 2025-04-13 23:59 | disposition home or self-care (01) | LOC: OT 08:00 | PROVIDERS: PCP Nurse Practitioner Family; Visit Provider Nurse Practitioner Family | DX: M25.512 Pain in left shoulder (principal) | CPT/HCPCS: 97014; 97032; 97035; 97110; 97140; 97165; 97530; G0283 ==

== ENCOUNTER 2025-05-04 08:00 | Outpatient (RCR) | payer OTHER, SELFPAY | END 2025-05-04 23:59 | disposition home or self-care (01) | LOC: OT 08:00 | PROVIDERS: PCP Nurse Practitioner Family; Visit Provider Nurse Practitioner Family | DX: M25.512 Pain in left shoulder (principal) | CPT/HCPCS: 97530 ==

== ENCOUNTER 2025-05-13 15:40 | Outpatient (CLI) | payer OTHER, SELFPAY ==
--- OUTSIDE RECORDS SUMMARY | 2025-05-13 15:42 | XMS_ITS | Clinical Summary ---
Author Organization [facility] Address [address] [place] [address] Care Team Providers Care Server Administrator Name Role Phone Stephen Cruz MD Primary Care Provider [phone] Allergies Active Allergy Reactions Criticality Noted Date [...] of 2) 12/23/2013 [facility]-Depression Screening 11/01/2023 11/01/2022 [id number] Vaccine ( season) 2024 07/21/2021, 10/11/2020, 09/13/2020 [facility]-Influenza Vaccine (#1) 2025 [facility]-RSV Vaccine: 60+ Years o r [...] patient's age to complete this topic Insurance [place] [address] Care Teams Server Administrator Relationship Specialty Start Date End Date Stephen Cruz MD [address] [place] [address] PCP - General 11/01/22
--- NOTE | 2025-05-13 16:00 | MR_ITS ---
PROCEDURE INFORMATION: Exam: MR Cervical Spine Without Contrast Exam date and time: 05/13/2025 4:12 PM Age: 59 years old Clinical indication: Neck pain; Additional info: Neck pain radiates down arms, worse in left TECHNIQUE: Imaging protocol: Magnetic resonance imaging of the cervical spine without contrast. COMPARISON: MR CERVICAL SPINE WO CON 12/03/2023 2:30 PM FINDINGS: Images are mildly motion degraded. Bones/joints: Anatomic alignment. No acute fracture seen. Spinal cord: Normal signal. No cord compression. No high-grade disc height loss. Mild spondylosis is again demonstrated from C3-C4 through C5-C6. C2-C3: No significant interval change. The central spinal canal is patent. Mild right uncovertebral arthropathy. No foraminal stenoses. C3-C4: A 2.3 mm central disc protrusion is again demonstrated slightly indenting ventral cord. Central spinal canal stenosis is mild. Uncovertebral and facet arthropathy causing mild right and no significant left neural foraminal stenoses. C4-C5: No significant interval change. Mild disc bulge. A subtle central disc protrusion. The central spinal canal remains patent. Mild uncovertebral and facet arthropathy. No significant foraminal stenoses. C5-C6: No significant interval change. Mild disc bulge. A broad-based 2 mm central disc protrusion with high-intensity zone. Slight posterior ligamentum flavum buckling. Central spinal canal stenosis is mild. No significant foraminal stenoses. C6-C7: The central spinal canal is patent. Mild uncovertebral and facet arthropathy not contributing to significant foraminal stenoses. C7-T1: No significant interval change. Tnxu-ey-[id number] left facet arthropathy. No stenoses. Soft tissues: Unremarkable. Vasculature: Not well assessed on this protocol. IMPRESSION: No significant interval change. No high-grade stenoses.
== END 2025-05-13 23:59 | disposition home or self-care (01) ==
LOC: RAD 15:41
PROVIDERS: PCP Nurse Practitioner Family; Visit Provider Nurse Practitioner Family
DX: M47.22 Other spondylosis with radiculopathy, cervical region (principal)
CPT/HCPCS: 72141

== ENCOUNTER 2025-05-20 20:53 | Outpatient (CLI) | payer OTHER, SELFPAY ==
--- NOTE | 2025-05-20 | XR_ITS ---
PROCEDURE INFORMATION: Exam: XR Cervical Spine Exam date and time: 05/20/2025 10:41 PM Age: 59 years old Clinical indication: Neck pain TECHNIQUE: Imaging protocol: Radiologic exam of the cervical spine. Views: 4 or 5 views. COMPARISON: MR CERVICAL SPINE WO CON 05/13/2025 4:12 PM FINDINGS: Bones/joints: Multilevel degenerative disc and joint space changes. Degenerative disc/osteophyte complexes from L3/4 to L5/6 levels. No acute fracture. Normal alignment. Soft tissues: Unremarkable. IMPRESSION: No acute findings.
--- OUTSIDE RECORDS SUMMARY | 2025-05-20 09:35 | XMS_ITS | Encounter Summary ---
Author Organization [facility] Address [address] [place] [address] Care Team Providers Care Dye Colorist Formulator Name Role Phone Erick Taylor APRN Primary Care Provider [phone] Reason for Visit * Reason Comments Consult * Consultation (Routine) - Closed Specialty Diagnoses / Procedures Referred By Contac t Referred To Contact Neurosurgery Diagnoses Cervical spondylosis with radiculopathy Cervical radiculopathy Erick Taylor APRN [address] [place] [address] Phone: tel: fax: Referral ID Status Reason Start Date Expiration Date V isits Requested Visits Authorized [id number] Closed Specialty Services Required 05/15/2025 11/14/2026 1 1 Encounter Details Date Type Department Care Team (Late st Contact Info) Description 05/20/2025 9:35 AM EDT Consult [facility] [address] [place] [address] [place] [address] Layla Apple PA [address] [facility] [address] [place] [address] Cervical stenosis of spinal canal (Primary Dx); Osteoarthritis of spine with radiculopathy, cervical region; Radicular syndrome of upper limbs; Paresthesia of left upper extremity; Paresthesia of right upper extremity; Neck pain Social History Tobacco Use Types Packs/Day Years Used Date Smoking Tobacco: Every Day Cigarettes Smokeless Tobacco: Never Tobacco Cessation:Ready to Q uit: Not Asked; Counseling Given: Not Answered Alcohol Use Standard Drinks/Week Comments Never 0 (1 standard drink = 0.6 oz pur e alcohol) PHQ-2 Answer Date Recorded Patient Health Questionnaire-2 Score 0 11/01/2022 PHQ-2A Answer Date Recorded Patient Health Questionnaire-2 Score 0 11/01/2022 Comments No Sex and Gender Information Value Date Recorded Sex Assigned at Not on file Legal Sex Female 7:50 PM EDT Gender Identity Not on file Sexual Orientation Not on file documented as of this encounter Last Filed Vital Signs Vital Sign Reading Time Taken Comments Blood Pressure 127/70 05/20/2025 9:13 AM EDT Pulse 63 05/20/2025 9:13 AM EDT Temperature - - Respiratory Rate - - Oxygen Saturation 96% 05/20/2025 9:13 AM EDT Inhaled Oxygen Concentration - - Weight 67.2 kg (148 lb 3.2 oz) 05/20/2025 9:13 A M EDT Height 152.4 cm (5') 05/20/2025 9:13 AM EDT Body Mass Index 28.94 05/20/2025 9:13 AM EDT documented in this encounter Plan of Treatment Scheduled Orders Name Type Priority Associated Diagnoses Orde r Schedule XR Cervical Spine Complete 4 To 5 Views Imaging Routine Osteoarthritis of spine with radiculopathy, cervical region Cervical stenosis of spinal canal Radicular syndrome of upper limbs Paresthesia of left upper extremity Paresthesia of right upper extremity Neck pain Expected: 05/20/2025 (Approximate), Expires: 11/21/2026 documented as of this encounter Visit Diagnoses Diagnosis Cervical stenosis of spinal canal- Primary Spinal stenosis in cervical region Osteoarthritis of spine with radiculopathy, cervical region Radicular syndrome of upper limbs Brachial neuritis or radiculitis nos Paresthesia of left upper extremity Paresthesia of right upper extremity Neck pain Cervicalgia documented in this encounter Additional Health Concerns Assessment Noted Time A fall risk assessment has been complete d for the patient 05/20/2025 9:16 AM EDT A Body Mass Index follow-up plan has been documented for the patient 11/01/2022 9:35 AM EST documented as of this encounter Care Teams Dye Colorist Formulator Relationship Specialty Start Date End Date Erick Taylor APRN [address] [place] [address] PCP - General 05/19/25 documented as of this encounter
--- OUTSIDE RECORDS SUMMARY | 2025-05-20 20:56 | XMS_ITS | Clinical Summary ---
Author Organization [facility] Address [address] [place] [address] Care Team Providers Care Wall To Wall Carpet Installer Name Role Phone Brandon Erick Neves APRN Primary Care Provider Allergies Active Allergy Reactions Criticality Noted Date Comments Oxcarbazepine Itching,Rash,Unknown - Patient states they do not know rxn details Medium 12/30/2015 Promethazine Other - please docum ent in the comment field,Unknown - Patient states they do not know rxn details Low 12/30/2015 muscle contractions Wound Dressings Other - please docum ent in the comment field Low 05/20/2025 Tripelennamine Other - please docum ent in the comment field Low 05/20/2025 Medications metoprolol succinate XL (Toprol-XL) 50 MG [...] mouth 1 (one) time each day. Active cholecalciferol (Vitamin D-3) 50 MCG (1999 UT) capsule Take by mouth daily. 06/12/2024 Active acetaminophen (Tylenol 8 Hour) 650 MG ER tablet Take 1 tablet by mouth every 8 hours as needed for mild pain. Do not crush, chew, or split. Active ibuprofen 600 MG tablet Take by mouth every 6 hours as needed for mild pain. Active Active Problems Problem Noted Date Diagnosed Date Mallet finger, right 11/01/2022 Encounters Date Type Department Care Team Description 05/20/2025 9:35 AM EDT Consult [facility] [address] [place] [address] Layla Apple PA Cervical stenosis of spinal canal (Primary Dx); Osteoarthritis of spine with radiculopathy, cervical region; Radicular syndrome of upper limbs; Paresthesia of left upper extremity; Paresthesia of right upper extremity; Neck pain 05/20/2025 Travel 05/15/2025 Telephone [place] [facility] [address] [place] [address] None, None 05/15/2025 Community Orders [facility] [address] [place] [address] Erick Taylor APRN Cervical spondylosis with radiculopathy (Primary Dx); Cervical radiculopathy 05/13/2025 Orders Only External Location [address] [place] [id number] Erick Taylor APRN from Last 3 Months Social History Tobacco Use Types Packs/Day Years [...] kg (148 lb 3.2 oz) 05/20/2025 9:13 AM EDT Height 152.4 cm (5') 05/20/2025 9:13 AM EDT Body Mass Index 28.94 05/20/2025 9:13 AM EDT Plan of Treatment Health Maintenance Due Date Last Done Comments [facility]-HIV Screening 1965 [facility]-Hepatitis C Screening 1963 [facility]-Infant/Child/Adol SDOH Screenings 1965 [facility]- SDOH Screenings 12/23/1981 [facility]-Adult SDOH Screenings 12/23/1981 [facility]-DTaP,Tdap,and Td Vaccine s (1 - Tdap) 12/23/1982 [facility]-Pneumococcal Vaccine: 50 + Years (1 of 2 - PCV) 12/23/1982 CT Colonography 12/23/2008 Colonoscopy 12/23/2008 FIT-DNA 12/23/2008 FIT 12/23/2008 FOBT 12/23/2008 Sigmoidoscopy 12/23/2008 [facility]-Colorectal Cancer Screening 12/23/2008 [facility]-Breast Cancer Screening 12/23/2013 [facility]-Zoster Vaccines (1 of 2) 12/23/2013 [facility]-Depression Screening 11/01/2023 11/01/2022 [id number] Vaccine ( season) 2025 07/21/2021, 10/11/2020, 09/13/2020 [facility]-Influenza Vaccine (#1) 2025 [...] on patient's age to complete this topic Procedures Procedure Name Priority Date/Time Associated Diagnosis Comments MR NEURO OUTSIDE IMAGES 05/13/2025 4:12 PM EDT from Last 3 Months Results * MR NEURO OUTSIDE IMAGES (05/13/2025 4:12 PM EDT) Anatomical Region Laterality Modality Magnetic Resonan ce 05/13/2025 4:12 PM EDT Erick Taylor APRN IMG MRI PROCEDURES Final Re sult from Last 3 Months Insurance Care Teams Wall To Wall Carpet Installer Relationship Specialty Start Date End Date Erick Taylor APRN [address] [place] [address] PCP - General 05/19/25
--- OUTSIDE RECORDS SUMMARY | 2025-05-20 20:56 | XMS_ITS | Encounter Summary ---
Author Organization Healthcare Address [address] [place] [address] Care Team Providers Care Research Associate Name Role Phone Stephen Cruz MD Primary Care Provider + [phone] Erick Taylor APRN Primary Care Provider [phone] Encounter Details Date Type Department Care Team (Late st Contact Info) Description 05/15/2025 [facility]phone [facility] [address] [place] [address] None, None [address], [place] [id number] Social History Tobacco Use Types Packs/Day Years Used Date Smoking Tobacco: Every Day Cigarettes Smokeless Tobacco: Never PHQ-2 Answer Date Recorded Patient Health Questionnaire-2 Score 0 11/01/2022 PHQ-2A Answer Date Recorded Patient Health Questionnaire-2 Score 0 11/01/2022 Comments Unknown Sex and Gender Information Value Date Recorded Sex Assigned at Not on file Legal Sex Female 7:50 PM EDT Gender Identity Not on file Sexual Orientation Not on file documented as of this encounter Miscellaneous Notes * Telephone Encounter - Sienna Arguelles - 05/19/2025 3:28 PM EDT Called and spoke w/ patient, scheduled referral w/ Layla Zechariah in [facility] for 05/20, 935AM.Provided clinic address and requested imaging from [facility]. Patient verbalized understanding. * Telephone Encounter - Balbina Morales - 05/19/2025 9:43 AM EDT Patient Phone Message Reason for Call: Patient returning call for scheduling with n/s Best contact number and optimal time of day to reach caller: [phone] Note: Please do not reply to this message. Follow-up communication and further actions as a result of this message need to be communicated with the patient directly, if the patient is not active onMyChart. If the patient is active on MyChart, they will receive notification of the communication/outcome via MyChart. * Telephone Encounter - Wilber Joy - 05/15/2025 4:28 PM EDT Patient Phone Message Reason for Call: Patient returning call for scheduling with n/s Best contact number and optimal time of day to reach caller: [phone] Note: Please do not reply to this message. Follow-up communication and further actions as a result of this message need to be communicated with the patient directly, if the patient is not active onMyChart. If the patient is active on MyChart, they will receive notification of the communication/outcome via MyChart. documented in this encounter Plan of Treatment Not on file documented as of this encounter Visit Diagnoses Not on filedocumented in this encounter Additional Health Concerns Assessment Noted Time A fall risk assessment has been complete d for the patient 11/01/2022 7:54 AM EST A Body Mass Index follow-up plan has been documented for the patient 11/01/2022 9:35 AM EST documented as of this encounter Care Teams Research Associate Relationship Specialty Start Date End Date Stephen Cruz MD [address] [place] [address] PCP - General 11/01/22 05/18/25 Erick Taylor APRN [address] [place] [address] PCP - General 05/19/25 documented as of this encounter
--- OUTSIDE RECORDS SUMMARY | 2025-05-20 20:56 | XMS_ITS | Encounter Summary ---
Author Organization [facility] Address [address] [place] [address] Care Team Providers Care Edi Developer Name Role Phone Erick Taylor APRN Primary Care Provider [phone] Encounter Details Date Type Department Care Team (Latest Contact Info) Description 05/20/2025 Travel Social History Tobacco Use Types Packs/Day Years Used Date Smoking Tobacco: Every Day Cigarettes Smokeless Tobacco: Never Alcohol Use Standard Drinks/Week Comments Never 0 [...] on file documented as of this encounter Plan of Treatment Not on [...] documented as of this encounter Care Teams Edi Developer Relationship Specialty Start Date End Date Erick Taylor APRN [address] [place] [address] PCP - General 05/19/25 documented as of this encounter
--- OUTSIDE RECORDS SUMMARY | 2025-05-20 20:56 | XMS_ITS | Encounter Summary ---
Author Organization [facility] Address [address] [place] [address] Care Team Providers Care Learning Technologist Name Role Phone Stephen Cruz MD Primary Care Provider + [phone] Erick Taylor APRN Primary Care Provider [phone] Reason for Referral * Consultation (Routine) - Closed Specialty Diagnoses / Procedures Referred By Yovani neves Referred To Contact Neurosurgery Diagnoses Cervical spondylosis with radiculopathy Cervical radiculopathy Erick Taylor APRN [address] [place] [address] Phone: tel: fax: Referral ID Status Reason Start Date Expiration Date V isits Requested Visits Authorized [id number] Closed Specialty Services Required 05/15/2025 11/14/2026 1 1 Encounter Details Date Type Department Care Team (Late st Contact Info) Description 05/15/2025 Community [facility] [address] [place] [address] Erick Taylor APRN [address] [place] [address] Cervical spondylosis with radiculopathy (Primary Dx); Cervical radiculopathy Social History Tobacco Use Types Packs/Day Years [...] as of this encounter Plan of Treatment Scheduled Referrals Name Type Priority Associated Diagnoses Orde r Schedule Ambulatory Referral to Neurosurgery Outpatient Referral Routine Cervical spondylosis with radiculopathy Cervical radiculopathy Expected: 05/15/2025 (Approximate), Expires: 11/16/2026 documented as of this encounter Visit Diagnoses Diagnosis Cervical spondylosis with radiculopathy- Primary Cervical spondylosis with myelopathy Cervical radiculopathy Brachial neuritis or radiculitis nos documented in this encounter Additional Health Concerns Assessment Noted Time A fall risk assessment has been complete d for the patient 11/01/2022 7:54 AM EST A Body Mass Index follow-up plan has been documented for the patient 11/01/2022 9:35 AM EST documented as of this encounter Care Teams Learning Technologist Relationship Specialty Start Date End Date Stephen Cruz MD [address] [place] [address] PCP - General 11/01/22 05/18/25 Erick Taylor APRN [address] [place] [address] PCP - General 05/19/25 documented as of this encounter
--- OUTSIDE RECORDS SUMMARY | 2025-05-20 20:56 | XMS_ITS | Encounter Summary ---
Author Organization Healthcare Address [address] [place] [address] Care Team Providers Care Southeast Regional Sales Manager Name Role Phone Stephen Cruz MD Primary Care Provider + [phone] Erick Taylor APRN Primary Care Provider [phone] Encounter Details Date Type Department Care Team ([facility] st Contact Info) Description 05/13/2025 Orders Only External Location [address] [place] [address] Erick Taylor APRN [address], [place] [id number] Social History Tobacco Use Types Packs/Day Years [...] on file documented as of this encounter Procedures Procedure Name Priority Date/Time Associated Diagnosis Comments MR NEURO OUTSIDE IMAGES 05/13/2025 4:12 PM EDT documented in this encounter Results * MR NEURO OUTSIDE IMAGES (05/13/2025 4:12 PM EDT) Anatomical Region Laterality Modality Magnetic Resonan ce 05/13/2025 4:12 PM EDT Erick Taylor APRN IMG MRI PROCEDURES Final Re sult documented in this encounter Visit Diagnoses Not on filedocumented in this encounter Additional Health Concerns Assessment Noted Time A fall risk assessment has been complete d for the patient 11/01/2022 7:54 AM EST A Body Mass Index follow-up plan has been documented for the patient 11/01/2022 9:35 AM EST documented as of this encounter Care Teams [employer] Regional Sales Manager Relationship Specialty Start Date End Date Stephen Cruz MD [address] [place] [address] PCP - General 11/01/22 05/18/25 Erick Taylor APRN [address] [place] [address] PCP - General 05/19/25 documented as of this encounter
== END 2025-05-20 23:59 | disposition home or self-care (01) ==
LOC: RAD 20:55
PROVIDERS: Visit Provider Physician Assistant
DX: M47.22 Other spondylosis with radiculopathy, cervical region (principal); M48.02 Spinal stenosis, cervical region
CPT/HCPCS: 72052